=== PATIENT | male | born 1940 | race Caucasian/White ===

== ENCOUNTER → 2022-11-23 | Day surgery (SDC) | payer OTHER ==
[2022-11-18 15:09] LABS: BASOPHILS # (AUTO) 0.1 X10'3 (0-0.2); BASOPHILS % (AUTO) 0.9 % (0-1); EOSINOPHILS % (AUTO) 0.3 % (0-6); LYMPHOCYTES # (AUTO) 0.6 X10'3 (1.1-4.8); LYMPHOCYTES % (AUTO) 7.3 % (21-51); MEAN CORPUSCULAR HEMOGLOBIN 32.4 PG (27.0-31.0); MEAN CORPUSCULAR HGB CONC 34.7 g/dL (33.0-36.5); MEAN CORPUSCULAR VOLUME 93.4 FL (78-98); MEAN PLATELET VOLUME 8.1 FL (7.4-10.4); MONOCYTES # (AUTO) 0.5 X10'3 (0-0.9); MONOCYTES % (AUTO) 6.4 % (2-12); NEUTROPHILS # (AUTO) 6.9 X10'3 (1.8-7.7); NEUTROPHILS % (AUTO) 85.1 % (42-75); PRE OP HEMOGLOBIN 14.2 g/dL (14.0-17.9); PRE OP PLATELET COUNT 220 X10'3 (140-440); RED BLOOD COUNT 4.39 X10'6 (4.70-6.10); RED CELL DISTRIBUTION WIDTH 13.4 % (11.5-14.5)
[2022-11-18 16:26] LABS: ALBUMIN/GLOBULIN RATIO 1.2 (1.1-1.5); ALKALINE PHOSPHATASE 170 IU/L (46-116); BLOOD UREA NITROGEN 8 MG/DL (7-18); BUN/CREATININE RATIO 7.4 (5.4-32.0); CALCIUM 8.5 MG/DL (8.5-10.1); CREATININE 1.08 MG/DL (0.60-1.10); PRE OP ALT 44 U/L (30-65); PRE OP AST 64 U/L (10-37); PRE OP BILIRUB, TOTAL 1.7 MG/DL (0.0-1.0); PRE OP GLUCOSE 145 MG/DL (70-104); TOTAL PROTEIN 7.3 G/DL (6.4-8.2); eGFR 66 ML/MIN
[2022-11-18 16:31] LABS: CHLORIDE 97 MMOL/L (99-107); PRE OP ANION GAP 11 (8-16); PRE OP SODIUM 139 MMOL/L (135-145)
[2022-11-18 16:32] LABS: PRE OP POTASSIUM 2.7 MMOL/L (3.4-5.1)
[~2022-11-23] VITALS: Ht 177.8 cm; Wt 81.8 kg
[~2022-11-23] MED LIST: AREDS 2; ATEN50TA41 PO; ATOR20TA66 PO; BUPIVAcaine/PF 7.5mg/ml (0.75%) 10ml vial ONE; CHLO25TA10 PO; DOCU100C40 PO; DOCUMENT DATE & TIME OF BETA-BLOCKER PO ONE; ENAL10TA19 PO; LIDOcaine 0.5% (5mg/ml) 50ml vial ONE; LOP25T PO; MELA3TAB39 PO; PANT-47 PO; RIVA20TA PO; ceFAZolin inj. 2,000 MG in dextrose 5%-water 100 ML IV ONE; famotidine 20mg tablet PO ONE; labetalol 20mg/4ml (5mg/ml) syringe IV PRN; midazolam 1 mg/ML 2ml injection ONE; morphine 2 MG/ML inj. syringe IV PRN; morphine 4 MG/ML inj SYRINge IV PRN; ondansetron/PF 4mg/2ml inj IV PRN; propofol inj 20 ML IV ONE; ringers solution, lactated 500 ML IV SCH; ringers solution, lacted 1,000 ML IV SCH
[2022-11-23 12:35] VITALS: BP 148/83
--- NOTE | 2022-11-23 12:35 | NUR ---
PT PREPARED FOR SURGERY. IV 'S STARTED WITHOUT DIFFICULTY. PT STATES HE DID NOT REQUEST PAIN MEDICINE BUT KNOW THINKS HE MIGHT NEED IT AND IS RE[facility]ING [facility]. ADVISED PT TO SPEAK TO THE PHYSICIAN WHEN HE COMES TO TORY HIS EXTREMITY.
--- NOTE | 2022-11-23 13:38 | NUR ---
PTS POTASSIUM REPEATED ON DAY OF SURGERY DUE TO LOW RESULT PREVIOUSLY. IT IS 2.7 TODAY. RESULTS CALLED TO DR WILLIAMSON. NO ORDERS RECEIVED
[2022-11-23 15:06] VITALS: BP 136/74
--- NOTE | 2022-11-23 15:06 | NUR ---
Received from OR via [facility], accompanied by Anesthesiologist DR SWAIN and report given by Anesthesiolgist. PT PRESERNTS WITH 20 G LEFT WRIST, DRESSING ON RIGHT HAND DIPTI FOWLERS. Addendum: 11/23/22 at 1520 by Nora Cordero RN, RN Amended: Links added.
[2022-11-23 15:20] VITALS: BP 140/88
[2022-11-23 15:30] VITALS: BP 140/88
[2022-11-23 15:40] VITALS: BP 148/84
[2022-11-23 15:56] VITALS: BP 148/84
--- NOTE | 2022-11-23 15:56 | NUR ---
ABLE TO SAFELY AMBULATE AND TRANSFER SELF. IV TAKEN OUT WITHOUT ANY COMPLICATIONS. ALL DISCHARGE INSTRUCTIONS COVERED WITH PATIENT AND ALL QUESTIONS ANSWERED. PATIENT TAKEN OUT VIA WHEELCHAIR TO PERSONAL VEHICLE WHERE FAMILY/FRIEND DROVE PATIENT HOME. Addendum: 11/23/22 at 1627 by Nora Cordero RN, RN Amended: Links added.
== END | disposition home or self-care (01) ==
LOC: PAS 12:09
PROVIDERS: ATTEND Orthopaedic Surgery Hand Surgery
DX: G56.01 Carpal tunnel syndrome, right upper limb (principal); I10 Essential (primary) hypertension; I48.91 Unspecified atrial fibrillation; I25.2 Old myocardial infarction; Z87.891 Personal history of nicotine dependence; Z85.038 Personal history of other malignant neoplasm of large intestine; Z90.49 Acquired absence of other specified parts of digestive tract; Z98.890 Other specified postprocedural states; Z72.89 Other problems related to lifestyle; Z79.899 Other long term (current) drug therapy; Z95.2 Presence of prosthetic heart valve
CPT/HCPCS: 36415; 64721; 80053; 82948; 84132; 85025; 93005; J0690; J2250; J2704; J3490; J7030; J7060; J7120; Z7506; Z7512; A4215